=== PATIENT | female | born 1965 | race Caucasian/White ===

== ENCOUNTER 2019-08-09 15:50 | Emergency (ER) | payer MEDICAID ==
[~2019-08-09] VITALS: Ht 144.8 cm; Wt 48.5 kg
[~2019-08-09 15:50] MED LIST: ASPI-144 PO; CLOB15CR4 TOP; METH-360 PO; SUMA100T PO
[2019-08-09 15:52] VITALS: BP 112/65
[2019-08-09] MEDS ORDERED: BACDS PO (16:38)
[2019-08-09] MEDS ORDERED: PRED20TA PO (16:38)
== END 2019-08-09 17:17 | disposition home or self-care (01) ==
LOC: ER 15:51
DX: L08.9 Local infection of the skin and subcutaneous tissue, unspecified (principal); M32.9 Systemic lupus erythematosus, unspecified; R21 Rash and other nonspecific skin eruption; Z86.718 Personal history of other venous thrombosis and embolism; Z98.51 Tubal ligation status; Z88.6 Allergy status to analgesic agent; Z79.82 Long term (current) use of aspirin; Z79.899 Other long term (current) drug therapy
CPT/HCPCS: 65205; 99283; 99284